=== PATIENT | female | born 1965 | race Caucasian/White ===

== ENCOUNTER 2024-12-22 15:55 | Outpatient (CLI) | payer MEDICAID ==
[~2024-12-22] VITALS: Ht 149.9 cm; Wt 70.3 kg
[2024-12-22] MEDS: albuterol 2.5 MG/3 ML nebule NEB ONE (16:41)
[2024-12-22 16:42] VITALS: PULSE 77; RESP 16; O2SAT 98
[2024-12-22 16:55] VITALS: PULSE 80; RESP 15
--- NOTE | 2024-12-23 13:36 | PROCEDURE NOTE - Respiratory ---
Procedure Note-Respiratory Providers to CC Copies To 1: NARDA COTTON Procedure Name: This is a spirometry study dated December 22, 2024. The spirometry study was performed both before and after inhaled bronchodilator. Spirometry measurements: Both the forced vital capacity and the FEV1 are normal. The FEV1 ratio is slightly elevated. Some of the flow rates show some reduction. After inhaled bronchodilator the flow rates show slight improvement. Overall conclusion: This study shows mild abnormality. There is evidence for obstructive ventilatory defect although it appears to be quite mild. The patient improved slightly with inhaled bronchodilator. These findings suggest a diagnosis of asthma and or mild smoking-related COPD. A clinical trial of inhaled bronchodilator might prove to be helpful for this patient. We have no previous studies for comparison. KELSY RUSSO MD Dec 23, 2024 13:36
== END 2024-12-22 23:59 | disposition home or self-care (01) ==
LOC: RT 15:55
PROVIDERS: ATTEND Nurse Practitioner Family
DX: R06.00 Dyspnea, unspecified (principal); J98.8 Other specified respiratory disorders
CPT/HCPCS: 94060; 94760